=== PATIENT | female | born 1985 ===

== ENCOUNTER 2019-09-18 16:39 | Inpatient (IN) | payer OTHER ==
[2019-09-18] MEDS ORDERED: Tranexamic Acid 1,000 MG in Sodium Chloride 0.9% 100 ML IV PRN (17:21)
[2019-09-18] MEDS ORDERED: Methylergonovine 0.2 MG/1 ML Amp IM PRN (17:21)
[2019-09-18] MEDS ORDERED: Terbutaline 1 MG/ML SDV SUBCUT PRN (17:21)
[2019-09-18] MEDS ORDERED: Butorphanol 1 MG/ML SDV IVPUSH PRN (17:21)
[2019-09-18] MEDS ORDERED: Sodium Chloride 0.9% 2.5 ML Syringe FLUSH PRN (17:21)
[2019-09-18] MEDS ORDERED: Carboprost Tromethamine 250 MCG/1 ML Amp IM PRN (17:21)
[2019-09-18] MEDS ORDERED: Ondansetron 4 MG/2 ML SDV IVPUSH PRN (17:21)
[2019-09-18] MEDS ORDERED: Sodium Chloride 0.9% 10 ML SDV IV PRN (17:21)
[2019-09-18] MEDS ORDERED: Water For Irrigation,Sterile 1,000 ML Container IRR PRN (17:21)
[2019-09-18] MEDS ORDERED: Misoprostol 200 MCG Tab PO PRN (17:21)
[2019-09-18] MEDS ORDERED: Sodium Chloride 0.9% 10 ML Syringe FLUSH PRN (17:21)
[2019-09-18] MEDS ORDERED: Lidocaine 1% 50 ML MDV INJECT PRN (17:21)
[2019-09-18] MEDS ORDERED: Lactated Ringers 1,000 ML IV SCH (17:30)
[2019-09-18] MEDS ORDERED: Oxytocin/0.9 % Sodium Chloride 30 UNIT/500 ML BAG IV SCH ×2 (17:30)
[2019-09-18 17:56] LABS: BLOOD UREA NITROGEN,BUN 10 mg/dL (7.0-18.0); CARBON DIOXIDE,CO2 20.5 mmol/L (21.0-32.0); CHLORIDE,CL 101 mmol/L (98-107); GLUCOSE RANDOM 97 mg/dL (74-106); SODIUM,NA 137 mmol/L (136-145)
[2019-09-18] MEDS ORDERED: fentaNYL 100 MCG/2 ML SDV ONE (19:40)
[2019-09-18] MEDS ORDERED: Ropivacaine HCl/PF 100 ML ONE (19:40)
--- NOTE | 2019-09-18 19:58 | PCM.PREANE ---
Preanesthetic Assessment - Anesthesia/Transfusion/Family Hx Anesthesia History: Prior Anesthesia Without Reaction Family History of Anesthesia Reaction: No Transfusion History: No Prior Transfusion(s) - Physical Assessment NPO Status Date: 09/18/19 NPO Status Time: 15:00 Height: 1.68 m Weight: 99.79 kg ASA Class: 1 - Lab Values: Laboratory Last Values WBC 10.07 K/uL (4.0-11.0) 09/18/19 17:00 RBC 4.59 M/uL (4.30-5.90) 09/18/19 17:00 Hgb 14.2 g/dL (12.0-16.0) 09/18/19 17:00 Hct 41.4 % (36.0-46.0) 09/18/19 17:00 MCV 90.2 fL (80.0-98.0) 09/18/19 17:00 MCH 30.9 pg (27.0-32.0) 09/18/19 17:00 MCHC 34.3 g/dL (31.0-37.0) 09/18/19 17:00 RDW Std Deviation 42.8 fl (28.0-62.0) 09/18/19 17:00 RDW Coeff of Jl 13 % (11.0-15.0) 09/18/19 17:00 Plt Count 222 K/uL (150-400) 09/18/19 17:00 MPV 10.00 fL (7.40-12.00) 09/18/19 17:00 Nucleated RBC % 0.0 /100WBC 09/18/19 17:00 Nucleated RBCs # 0 K/uL 09/18/19 17:00 Sodium 137 mmol/L (136-145) 09/18/19 17:00 Potassium 4.0 mmol/L (3.5-5.1) 09/18/19 17:00 Chloride 101 mmol/L (98-107) 09/18/19 17:00 Carbon Dioxide 20.5 mmol/L (21.0-32.0) L 09/18/19 17:00 BUN 10 mg/dL (7.0-18.0) 09/18/19 17:00 Creatinine 0.6 mg/dL (0.6-1.0) 09/18/19 17:00 Est Cr Clr Drug Dosing 127.18 mL/min 09/18/19 17:00 Estimated GFR (MDRD) > 60.0 ml/min 09/18/19 17:00 Glucose 97 mg/dL (74-106) 09/18/19 17:00 Uric Acid 4.3 mg/dL (2.6-7.2) 09/18/19 17:00 Calcium 9.1 mg/dL (8.5-10.1) 09/18/19 17:00 Total Bilirubin 0.3 mg/dL (0.2-1.0) 09/18/19 17:00 AST 19 IU/L (15-37) 09/18/19 17:00 ALT 23 IU/L (14-63) 09/18/19 17:00 Alkaline Phosphatase 156 U/L (46-116) H 09/18/19 17:00 Total Protein 6.6 g/dL (6.4-8.2) 09/18/19 17:00 Albumin 2.9 g/dL (3.4-5.0) L 09/18/19 17:00 Globulin 3.7 g/dL (2.6-4.0) 09/18/19 17:00 Albumin/Globulin Ratio 0.8 (0.9-1.6) L 09/18/19 17:00 Ur Random Creatinine 143.5 mg/dL 09/18/19 17:50 U Random Total Protein 16.8 mg/dL (<11.9) H 09/18/19 17:50 Protein/Creatinin Ratio 0.1 09/18/19 17:50 COVID-19 (GIANCARLO) NEGATIVE (NEGATIVE) 09/18/19 17:05 Blood Type O NEGATIVE 09/18/19 17:00 Antibody Screen NEGATIVE 09/18/19 17:00 - Allergies Allergies/Adverse Reactions: Allergies Allergy/AdvReac Type Severity Reaction Status Date / Time Penicillins Allergy Rash Verified 02/01/14 17:49 - Acknowledgements Anesthesia Type Planned: Epidural Pt an Appropriate Candidate for the Planned Anesthesia: Yes Alternatives and Risks of Anesthesia Discussed w Pt/Guardian: Yes Pt/Guardian Understands and Agrees with Anesthesia Plan: Yes PreAnesthesia Questionnaire HEENT History: Reports: Impaired Vision, Other (See Below) Other HEENT History: contacts Cardiovascular History: Reports: Hypertension Other Cardiovascular History: gestational hypertension [employer]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: - Infectious Disease History Infectious Disease History: Reports: None - Past Surgical History GI Surgical History: Reports: Appendectomy - SUBSTANCE USE Smoking Status *Q: Never Smoker Second Hand Smoke Exposure: No Recreational Drug Use History: No - CURRENT (IN HOUSE) MEDS Current Meds: Current Medications Butorphanol Tartrate (Stadol) 1 mg IVPUSH Q1H PRN PRN Reason: Pain Carboprost Tromethamine (Hemabate Ds) 250 mcg IM ASDIRECTED PRN PRN Reason: Post Hemorrhage Lactated Ringer's (Ringers, Lactated) 1,000 mls @ 150 mls/hr IV ASDIRECTED SYL Oxytocin/Sodium Chloride (Oxytocin 30 Unit/500 Ml-Ns) 30 unit in 500 mls @ 999 mls/hr IV TITRATE SYL Tranexamic Acid 1,000 mg/ (Sodium Chloride) 110 mls @ 660 mls/hr IV ONETIME PRN PRN Reason: Bleeding Oxytocin/Sodium Chloride (Oxytocin 30 Unit/500 Ml-Ns) 30 unit in 500 mls @ 2 mls/hr IV TITRATE SYL; Protocol Lidocaine HCl (Xylocaine 1%) 50 ml INJECT ONETIME PRN PRN Reason: Laceration repair Methylergonovine Maleate (Methergine) 0.2 mg IM ASDIRECTED PRN PRN Reason: Post Hemorrhage Misoprostol (Cytotec) 200 mcg PO ONETIME PRN PRN Reason: Post Hemorrhage Ondansetron HCl (Zofran) 4 mg IVPUSH Q4H PRN PRN Reason: Nausea/Vomiting Sodium Chloride (Saline Flush) 10 ml FLUSH ASDIRECTED PRN PRN Reason: Keep Vein Open Sodium Chloride (Saline Flush) 2.5 ml FLUSH ASDIRECTED PRN PRN Reason: Keep Vein Open Sodium Chloride (Normal Saline) 10 ml IV ASDIRECTED PRN PRN Reason: IV Use Sterile Water (Sterile Water For Irrigation) 1,000 ml IRR ASDIRECTED PRN PRN Reason: delivery Terbutaline Sulfate (Brethine) 0.25 mg SUBCUT ASDIRECTED PRN PRN Reason: Tacysystole Discontinued Medications Fentanyl (Sublimaze) Confirm Administered Dose 100 mcg .ROUTE .STK-MED ONE Stop: 09/18/19 19:41 Ropivacaine (Naropin 0.2%) Confirm Administered Dose 100 mls @ as directed .ROUTE .STK-MED ONE Stop: 09/18/19 19:41
--- NOTE | 2019-09-18 20:02 | PCM.PRNOTE ---
- Free Text/Narrative Note: Anes Note Patietn requests epidural for L&D. Sitting position, level L3-L4 midline approach. Sterile technique. Chloraprep scrub to lumbar area. Sterile fenestrated drape applied. Epidural space easily achieved single attempt using FABY technique. FABY at 3 cm. Cath threaded 5 cm with ease. Cath secured at 9 cm at skin using sterile clear adhesive dressing. Test 1946 3 cc 1.5 lido with epi negative. 1950 Load 10 cc 0.2% ropivicaine with 1 mcg cc fentanyl in slow divided doses. 1956 Pumps started wit 90 cc same solution. Rate is 8 cc hr with 6 cc q 20 min prn bolus. Bryan well. Time with patient [id number] Apolinar Coates CRISIS MENTAL HEALTH THERAPIST
[2019-09-18] MEDS ORDERED: Ibuprofen 400 MG Tab PO PRN (22:45)
[2019-09-18] MEDS ORDERED: Bisacodyl 10 MG Supp RECTAL PRN (22:45)
[2019-09-18] MEDS ORDERED: Acetaminophen 500 MG Tab PO PRN ×2 (22:45)
[2019-09-18] MEDS ORDERED: oxyCODONE 5 MG Tab PO PRN (22:45)
[2019-09-18] MEDS ORDERED: Benzocaine/Menthol 20%-0.5% Spray 78 GM Cannister TOP PRN (22:45)
[2019-09-18] MEDS ORDERED: Ibuprofen 800 MG Tab PO PRN (22:45)
[2019-09-18] MEDS ORDERED: Witch Hazel Medicated Pads 40/Jar TOP PRN (22:45)
[2019-09-18] MEDS ORDERED: Docusate Sodium 100 MG Cap PO PRN (22:45)
[2019-09-18] MEDS ORDERED: Lanolin 100% Cream 7 GM Tube TOP PRN (22:45)
--- NOTE | 2019-09-18 22:51 | PCM.DEL ---
L & D Note - General Info Date of Service: 09/18/19 Mother's Due Date: 09/16/19 - Delivery Note Labor: Spontaneous Delivery Outcome: Livebirth Presentation: Right Occiput Anterior (JULIO) Nuchal Cord: None Anesthesia Type: Epidural Amniotic Fluid Description: Clear Episiotomy Type: None Laceration: None Estimated Blood Loss: 300 Resuscitation Needed: No Score 1 min: 8 Score 5 min: 9 Second Stage Interventions: Reports: Pushing Effectively Delivery Comments (Free Text/Narrative):: Live female delivered at 2158 , 8/9 , weight 3770g - General Info Date of Service: 09/18/19 - Patient Data Weight - Most Recent: 99.79 kg Lab Results Last 24 Hours: Laboratory Results - last 24 hr 09/18/19 09/18/19 09/18/19 Range/Units 17:00 17:00 17:00 WBC 10.07 (4.0-11.0) K/uL RBC 4.59 (4.30-5.90) M/uL Hgb 14.2 (12.0-16.0) g/dL Hct 41.4 (36.0-46.0) % MCV 90.2 (80.0-98.0) fL MCH 30.9 (27.0-32.0) pg MCHC 34.3 (31.0-37.0) g/dL RDW Std Deviation 42.8 (28.0-62.0) fl RDW Coeff of Jl 13 (11.0-15.0) % Plt Count 222 (150-400) K/uL MPV 10.00 (7.40-12.00) fL Nucleated RBC % 0.0 /100WBC Nucleated RBCs # 0 K/uL Sodium 137 (136-145) mmol/L Potassium 4.0 (3.5-5.1) mmol/L Chloride 101 (98-107) mmol/L Carbon Dioxide 20.5 L (21.0-32.0) mmol/L BUN 10 (7.0-18.0) mg/dL Creatinine 0.6 (0.6-1.0) mg/dL Est Cr Clr Drug Dosing 127.18 mL/min Estimated GFR (MDRD) > 60.0 ml/min Glucose 97 (74-106) mg/dL Uric Acid (2.6-7.2) mg/dL Calcium 9.1 (8.5-10.1) mg/dL Total Bilirubin 0.3 (0.2-1.0) mg/dL AST 19 (15-37) IU/L ALT 23 (14-63) IU/L Alkaline Phosphatase 156 H (46-116) U/L Total Protein 6.6 (6.4-8.2) g/dL Albumin 2.9 L (3.4-5.0) g/dL Globulin 3.7 (2.6-4.0) g/dL Albumin/Globulin Ratio 0.8 L (0.9-1.6) Ur Random Creatinine mg/dL U Random Total Protein (<11.9) mg/dL Protein/Creatinin Ratio COVID-19 (GIANCARLO) (NEGATIVE) Blood Type O NEGATIVE Antibody Screen NEGATIVE 09/18/19 09/18/19 09/18/19 Range/Units 17:00 17:05 17:50 WBC (4.0-11.0) K/uL RBC (4.30-5.90) M/uL Hgb (12.0-16.0) g/dL Hct (36.0-46.0) % MCV (80.0-98.0) fL MCH (27.0-32.0) pg MCHC (31.0-37.0) g/dL RDW Std Deviation (28.0-62.0) fl RDW Coeff of Jl (11.0-15.0) % Plt Count (150-400) K/uL MPV (7.40-12.00) fL Nucleated RBC % /100WBC Nucleated RBCs # K/uL Sodium (136-145) mmol/L Potassium (3.5-5.1) mmol/L Chloride (98-107) mmol/L Carbon Dioxide (21.0-32.0) mmol/L BUN (7.0-18.0) mg/dL Creatinine (0.6-1.0) mg/dL Est Cr Clr Drug Dosing mL/min Estimated GFR (MDRD) ml/min Glucose (74-106) mg/dL Uric Acid 4.3 (2.6-7.2) mg/dL Calcium (8.5-10.1) mg/dL Total Bilirubin (0.2-1.0) mg/dL AST (15-37) IU/L ALT (14-63) IU/L Alkaline Phosphatase (46-116) U/L Total Protein (6.4-8.2) g/dL Albumin (3.4-5.0) g/dL Globulin (2.6-4.0) g/dL Albumin/Globulin Ratio (0.9-1.6) Ur Random Creatinine 143.5 mg/dL U Random Total Protein 16.8 H (<11.9) mg/dL Protein/Creatinin Ratio 0.1 COVID-19 (GIANCARLO) NEGATIVE (NEGATIVE) Blood Type Antibody Screen Med Orders - Current: Current Medications Acetaminophen (Tylenol Extra Strength) 500 mg PO Q4H PRN PRN Reason: Pain Acetaminophen (Tylenol Extra Strength) 1,000 mg PO Q4H PRN PRN Reason: Pain Benzocaine/Menthol (Dermoplast Pain Relief 20%-0.5% [place]) 78 gm TOP ASDIRECTED PRN PRN Reason: Perineal Comfort Measure Bisacodyl (Dulcolax) 10 mg RECTAL ONETIME PRN PRN Reason: Constipation Carboprost Tromethamine (Hemabate Ds) 250 mcg IM ASDIRECTED PRN PRN Reason: Post Hemorrhage Docusate Sodium (Colace) 100 mg PO BID PRN PRN Reason: Constipation Emollient Ointment (Lansinoh Hpa) 0 gm TOP ASDIRECTED PRN PRN Reason: Sore Nipples Lactated Ringer's (Ringers, Lactated) 1,000 mls @ 150 mls/hr IV ASDIRECTED [facility] Oxytocin/Sodium Chloride (Oxytocin 30 Unit/500 Ml-Ns) 30 unit in 500 mls @ 999 mls/hr IV TITRATE [facility] Last Admin: 09/18/19 21:59 Dose: 999 mls/hr Documented by: Tranexamic Acid 1,000 mg/ (Sodium Chloride) 110 mls @ 660 mls/hr IV ONETIME PRN PRN Reason: Bleeding Oxytocin/Sodium Chloride (Oxytocin 30 Unit/500 Ml-Ns) 30 unit in 500 mls @ 2 mls/hr IV TITRATE [facility]; Protocol Ibuprofen (Motrin) 400 mg PO Q4H PRN PRN Reason: Pain Ibuprofen (Motrin) 800 mg PO Q6H PRN PRN Reason: Pain Lidocaine HCl (Xylocaine 1%) 50 ml INJECT ONETIME PRN PRN Reason: Laceration repair Methylergonovine Maleate (Methergine) 0.2 mg IM ASDIRECTED PRN PRN Reason: Post Hemorrhage Misoprostol (Cytotec) 200 mcg PO ONETIME PRN PRN Reason: Post Hemorrhage Ondansetron HCl (Zofran) 4 mg IVPUSH Q4H PRN PRN Reason: Nausea/Vomiting Oxycodone HCl (Oxycodone) 5 mg PO Q2H PRN PRN Reason: Pain Sodium Chloride (Saline Flush) 10 ml FLUSH ASDIRECTED PRN PRN Reason: Keep Vein Open Sodium Chloride (Saline Flush) 2.5 ml FLUSH ASDIRECTED PRN PRN Reason: Keep Vein Open Sodium Chloride (Normal Saline) 10 ml IV ASDIRECTED PRN PRN Reason: IV Use Sterile Water (Sterile Water For Irrigation) 1,000 ml IRR ASDIRECTED PRN PRN Reason: delivery Terbutaline Sulfate (Brethine) 0.25 mg SUBCUT ASDIRECTED PRN PRN Reason: Tacysystole Witch Gladys (Tucks) 1 pad TOP ASDIRECTED PRN PRN Reason: comfort care Discontinued Medications Butorphanol Tartrate (Stadol) 1 mg IVPUSH Q1H PRN PRN Reason: Pain Fentanyl (Sublimaze) Confirm Administered Dose 100 mcg .ROUTE .STK-MED ONE Stop: 09/18/19 19:41 Last Admin: 09/18/19 22:30 Dose: Not Given Documented by: Ropivacaine (Naropin 0.2%) Confirm Administered Dose 100 mls @ as directed .ROUTE .STK-MED ONE Stop: 09/18/19 19:41 Last Admin: 09/18/19 22:29 Dose: Not Given Documented by: - Problem List & Annotations (1) Vaginal delivery SNOMED Code(s): 032933610 Code(s): O80 - ENCOUNTER FOR FULL-TERM UNCOMPLICATED DELIVERY Status: Acute Current Visit: No - Problem List Review Problem List Initiated/Reviewed/Updated: Yes - My Orders Last 24 Hours: My Active Orders 09/18/19 22:45 Patient Status [ADT] Routine May Shower [RC] ASDIRECTED Up ad Munira [RC] ASDIRECTED Vital Signs [RC] PER UNIT ROUTINE Acetaminophen [Tylenol Extra Strength] 1,000 mg PO Q4H PRN Acetaminophen [Tylenol Extra Strength] 500 mg PO Q4H PRN Benzocaine/Menthol [Dermoplast Pain Relief 20%-0.5% [place]] 78 gm TOP ASDIRECTED PRN Docusate Sodium [Colace] 100 mg PO BID PRN Ibuprofen [Motrin] 400 mg PO Q4H PRN Ibuprofen [Motrin] 800 mg PO Q6H PRN Lanolin [Lansinoh HPA] See Dose Instructions TOP ASDIRECTED PRN bisacodyL [Dulcolax] 10 mg RECTAL ONETIME PRN oxyCODONE 5 mg PO Q2H PRN witch Gladys [Tucks] 1 pad TOP ASDIRECTED PRN Assess Lochia [WOMSER] Per Unit Routine Assess Uterine Involution [WOMSER] Per Unit Routine Peripheral IV Discontinue [OM.PC] Routine Resuscitation Status Routine 09/18/19 22:47 RHOGAM, [RHIG WORKUP, ] [BBK] Routine 09/19/19 05:11 HEMOGLOBIN/HEMATOCRIT,HH [HEME] Timed
--- NOTE | 2019-09-19 07:10 | PCM48HPAN ---
Post Anesthesia Note - EVALUATION WITHIN 48HRS OF ANESTHETIC Vital Signs in Normal Range: Yes Patient Participated in Evaluation: Yes Respiratory Function Stable: Yes Airway Patent: Yes Cardiovascular Function Stable: Yes Hydration Status Stable: Yes Pain Control Satisfactory: Yes Nausea and Vomiting Control Satisfactory: Yes Mental Status Recovered: Yes Vital Signs: Last Vital Signs Temp 98 F 09/19/19 06:10 Pulse 93 09/19/19 06:10 Resp 16 09/19/19 06:10 BP 119/73 09/19/19 06:10 Pulse Ox
--- NOTE | 2019-09-19 08:27 | PCM.PNPP ---
- General Info Date of Service: 09/19/19 Functional Status: Reports: Pain Controlled, Tolerating Diet, Ambulating, Urinating - Review of Systems General: Reports: No Symptoms HEENT: Reports: No Symptoms Pulmonary: Reports: No Symptoms Cardiovascular: Reports: No Symptoms Gastrointestinal: Reports: No Symptoms Genitourinary: Reports: No Symptoms Musculoskeletal: Reports: No Symptoms Skin: Reports: No Symptoms Neurological: Reports: No Symptoms Psychiatric: Reports: No Symptoms - General Info Date of Service: 09/19/19 - Patient Data Vital Signs - Most Recent: Last Vital Signs Temp 36.5 C 09/19/19 08:12 Pulse 83 09/19/19 08:12 Resp 18 09/19/19 08:12 BP 110/70 09/19/19 08:12 Pulse Ox 95 09/19/19 08:12 Weight - Most Recent: 99.79 kg I&O - Last 24 Hours: Intake & Output 09/18/19 09/19/19 09/19/19 22:59 06:59 14:59 Output Total 225 Balance -225 Lab Results - Last 24 Hours: Laboratory Results - last 24 hr 09/18/19 09/18/19 09/18/19 Range/Units 17:00 17:00 17:00 WBC 10.07 (4.0-11.0) K/uL RBC 4.59 (4.30-5.90) M/uL Hgb 14.2 (12.0-16.0) g/dL Hct 41.4 (36.0-46.0) % MCV 90.2 (80.0-98.0) fL MCH 30.9 (27.0-32.0) pg MCHC 34.3 (31.0-37.0) g/dL RDW Std Deviation 42.8 (28.0-62.0) fl RDW Coeff of Jl 13 (11.0-15.0) % Plt Count 222 (150-400) K/uL MPV 10.00 (7.40-12.00) fL Nucleated RBC % 0.0 /100WBC Nucleated RBCs # 0 K/uL Cord ABG pH (7.18-7.38) Cord ABG Base Excess (-10--2) Cord VBG pH (7.25-7.45) Cord VBG Base Excess (-10--2) Sodium 137 (136-145) mmol/L Potassium 4.0 (3.5-5.1) mmol/L Chloride 101 (98-107) mmol/L Carbon Dioxide 20.5 L (21.0-32.0) mmol/L BUN 10 (7.0-18.0) mg/dL Creatinine 0.6 (0.6-1.0) mg/dL Est Cr Clr Drug Dosing 127.18 mL/min Estimated GFR (MDRD) > 60.0 ml/min Glucose 97 (74-106) mg/dL Uric Acid (2.6-7.2) mg/dL Calcium 9.1 (8.5-10.1) mg/dL Total Bilirubin 0.3 (0.2-1.0) mg/dL AST 19 (15-37) IU/L ALT 23 (14-63) IU/L Alkaline Phosphatase 156 H (46-116) U/L Total Protein 6.6 (6.4-8.2) g/dL Albumin 2.9 L (3.4-5.0) g/dL Globulin 3.7 (2.6-4.0) g/dL Albumin/Globulin Ratio 0.8 L (0.9-1.6) Ur Random Creatinine mg/dL U Random Total Protein (<11.9) mg/dL Protein/Creatinin Ratio COVID-19 (GIANCARLO) (NEGATIVE) Blood Type O NEGATIVE Antibody Screen NEGATIVE Screen (NEGATIVE) RhIG Candidate? Rhogam Indicated 09/18/19 09/18/19 09/18/19 Range/Units 17:00 17:05 17:50 WBC (4.0-11.0) K/uL RBC (4.30-5.90) M/uL Hgb (12.0-16.0) g/dL Hct (36.0-46.0) % MCV (80.0-98.0) fL MCH (27.0-32.0) pg MCHC (31.0-37.0) g/dL RDW Std Deviation (28.0-62.0) fl RDW Coeff of Jl (11.0-15.0) % Plt Count (150-400) K/uL MPV (7.40-12.00) fL Nucleated RBC % /100WBC Nucleated RBCs # K/uL Cord ABG pH (7.18-7.38) Cord ABG Base Excess (-10--2) Cord VBG pH (7.25-7.45) Cord VBG Base Excess (-10--2) Sodium (136-145) mmol/L Potassium (3.5-5.1) mmol/L Chloride (98-107) mmol/L Carbon Dioxide (21.0-32.0) mmol/L BUN (7.0-18.0) mg/dL Creatinine (0.6-1.0) mg/dL Est Cr Clr Drug Dosing mL/min Estimated GFR (MDRD) ml/min Glucose (74-106) mg/dL Uric Acid 4.3 (2.6-7.2) mg/dL Calcium (8.5-10.1) mg/dL Total Bilirubin (0.2-1.0) mg/dL AST (15-37) IU/L ALT (14-63) IU/L Alkaline Phosphatase (46-116) U/L Total Protein (6.4-8.2) g/dL Albumin (3.4-5.0) g/dL Globulin (2.6-4.0) g/dL Albumin/Globulin Ratio (0.9-1.6) Ur Random Creatinine 143.5 mg/dL U Random Total Protein 16.8 H (<11.9) mg/dL Protein/Creatinin Ratio 0.1 COVID-19 (GIANCARLO) NEGATIVE (NEGATIVE) Blood Type Antibody Screen Screen (NEGATIVE) RhIG Candidate? Rhogam Indicated 09/18/19 09/18/19 09/19/19 Range/Units 21:58 23:00 06:25 WBC (4.0-11.0) K/uL RBC (4.30-5.90) M/uL Hgb 12.7 (12.0-16.0) g/dL Hct 39.2 (36.0-46.0) % MCV (80.0-98.0) fL MCH (27.0-32.0) pg MCHC (31.0-37.0) g/dL RDW Std Deviation (28.0-62.0) fl RDW Coeff of Jl (11.0-15.0) % Plt Count (150-400) K/uL MPV (7.40-12.00) fL Nucleated RBC % /100WBC Nucleated RBCs # K/uL Cord ABG pH 7.207 (7.18-7.38) Cord ABG Base Excess -6 (-10--2) Cord VBG pH 7.310 (7.25-7.45) Cord VBG Base Excess -4 (-10--2) Sodium (136-145) mmol/L Potassium (3.5-5.1) mmol/L Chloride (98-107) mmol/L Carbon Dioxide (21.0-32.0) mmol/L BUN (7.0-18.0) mg/dL Creatinine (0.6-1.0) mg/dL Est Cr Clr Drug Dosing mL/min Estimated GFR (MDRD) ml/min Glucose (74-106) mg/dL Uric Acid (2.6-7.2) mg/dL Calcium (8.5-10.1) mg/dL Total Bilirubin (0.2-1.0) mg/dL AST (15-37) IU/L ALT (14-63) IU/L Alkaline Phosphatase (46-116) U/L Total Protein (6.4-8.2) g/dL Albumin (3.4-5.0) g/dL Globulin (2.6-4.0) g/dL Albumin/Globulin Ratio (0.9-1.6) Ur Random Creatinine mg/dL U Random Total Protein (<11.9) mg/dL Protein/Creatinin Ratio COVID-19 (GIANCARLO) (NEGATIVE) Blood Type Antibody Screen Screen NEGATIVE (NEGATIVE) RhIG Candidate? YES Rhogam Indicated YES, BABY RH POS H Med Orders - Current: Current Medications Acetaminophen (Tylenol Extra Strength) 500 mg PO Q4H PRN PRN Reason: Pain Acetaminophen (Tylenol Extra Strength) 1,000 mg PO Q4H PRN PRN Reason: Pain Benzocaine/Menthol (Dermoplast Pain Relief 20%-0.5% [place]) 78 gm TOP ASDIRECTED PRN PRN Reason: Perineal Comfort Measure Last Admin: 09/18/19 23:54 Dose: 1 can Documented by: Bisacodyl (Dulcolax) 10 mg RECTAL ONETIME PRN PRN Reason: Constipation Carboprost Tromethamine (Hemabate Ds) 250 mcg IM ASDIRECTED PRN PRN Reason: Post Hemorrhage Docusate Sodium (Colace) 100 mg PO BID PRN PRN Reason: Constipation Emollient Ointment (Lansinoh Hpa) 0 gm TOP ASDIRECTED PRN PRN Reason: Sore Nipples Lactated Ringer's (Ringers, Lactated) 1,000 mls @ 150 mls/hr IV ASDIRECTED SYL Oxytocin/Sodium Chloride (Oxytocin 30 Unit/500 Ml-Ns) 30 unit in 500 mls @ 999 mls/hr IV TITRATE [facility] Last Admin: 09/18/19 21:59 Dose: 999 mls/hr Documented by: Tranexamic Acid 1,000 mg/ (Sodium Chloride) 110 mls @ 660 mls/hr IV ONETIME PRN PRN Reason: Bleeding Oxytocin/Sodium Chloride (Oxytocin 30 Unit/500 Ml-Ns) 30 unit in 500 mls @ 2 mls/hr IV TITRATE [facility]; Protocol Ibuprofen (Motrin) 400 mg PO Q4H PRN PRN Reason: Pain Ibuprofen (Motrin) 800 mg PO Q6H PRN PRN Reason: Pain Lidocaine HCl (Xylocaine 1%) 50 ml INJECT ONETIME PRN PRN Reason: Laceration repair Methylergonovine Maleate (Methergine) 0.2 mg IM ASDIRECTED PRN PRN Reason: Post Hemorrhage Misoprostol (Cytotec) 200 mcg PO ONETIME PRN PRN Reason: Post Hemorrhage Ondansetron HCl (Zofran) 4 mg IVPUSH Q4H PRN PRN Reason: Nausea/Vomiting Oxycodone HCl (Oxycodone) 5 mg PO Q2H PRN PRN Reason: Pain Sodium Chloride (Saline Flush) 10 ml FLUSH ASDIRECTED PRN PRN Reason: Keep Vein Open Sodium Chloride (Saline Flush) 2.5 ml FLUSH ASDIRECTED PRN PRN Reason: Keep Vein Open Sodium Chloride (Normal Saline) 10 ml IV ASDIRECTED PRN PRN Reason: IV Use Sterile Water (Sterile Water For Irrigation) 1,000 ml IRR ASDIRECTED PRN PRN Reason: delivery Terbutaline Sulfate (Brethine) 0.25 mg SUBCUT ASDIRECTED PRN PRN Reason: Tacysystole Witch Gladys (Tucks) 1 pad TOP ASDIRECTED PRN PRN Reason: comfort care Last Admin: 09/18/19 23:54 Dose: 1 tub Documented by: Discontinued Medications Butorphanol Tartrate (Stadol) 1 mg IVPUSH Q1H PRN PRN Reason: Pain Fentanyl (Sublimaze) Confirm Administered Dose 100 mcg .ROUTE .STK-MED ONE Stop: 09/18/19 19:41 Last Admin: 09/18/19 22:30 Dose: Not Given Documented by: Ropivacaine (Naropin 0.2%) Confirm Administered Dose 100 mls @ as directed .ROUTE .STK-MED ONE Stop: 09/18/19 19:41 Last Admin: 09/18/19 22:29 Dose: Not Given Documented by: - Interaction Support Person: - Recovery Exam Fundal Tone: Firm Fundal Level: At Umbilicus Fundal Placement: Midline Lochia Amount: Small Lochia Color: Alba/White Perineum Description: Intact, Minimal Bruising/Swelling Episiotomy/Laceration: None Bladder Status: Voiding - Exam General: Alert HEENT: Pupils Equal Neck: Supple Lungs: Clear to Auscultation, Normal Respiratory Effort Cardiovascular: Regular Rate, Regular Rhythm GI/Abdominal Exam: Normal Bowel Sounds Extremities: Normal Inspection Neurological: No New Focal Deficit Psy/Mental Status: Alert - Problem List & Annotations (1) Vaginal delivery SNOMED Code(s): 115868475 Code(s): O80 - ENCOUNTER FOR FULL-TERM UNCOMPLICATED DELIVERY Status: Acute Current Visit: No - Problem List Review Problem List Initiated/Reviewed/Updated: No - My Orders Last 24 Hours: My Active Orders 09/18/19 22:45 Patient Status [ADT] Routine May Shower [RC] ASDIRECTED Up ad Munira [RC] ASDIRECTED Vital Signs [RC] PER UNIT ROUTINE Acetaminophen [Tylenol Extra Strength] 1,000 mg PO Q4H PRN Acetaminophen [Tylenol Extra Strength] 500 mg PO Q4H PRN Benzocaine/Menthol [Dermoplast Pain Relief 20%-0.5% [place]] 78 gm TOP ASDIRECTED PRN Docusate Sodium [Colace] 100 mg PO BID PRN Ibuprofen [Motrin] 400 mg PO Q4H PRN Ibuprofen [Motrin] 800 mg PO Q6H PRN Lanolin [Lansinoh HPA] See Dose Instructions TOP ASDIRECTED PRN bisacodyL [Dulcolax] 10 mg RECTAL ONETIME PRN oxyCODONE 5 mg PO Q2H PRN witch Gladys [Tucks] 1 pad TOP ASDIRECTED PRN Assess Lochia [WOMSER] Per Unit Routine Assess Uterine Involution [WOMSER] Per Unit Routine Peripheral IV Discontinue [OM.PC] Routine Resuscitation Status Routine 09/18/19 23:00 SCREEN [BBK] Routine RH IMMUNE GLOBULIN [BBK] Routine RHOGAM, [RHIG WORKUP, ] [BBK] Routine - Assessment Assessment:: 33 yo s/p PPD 1 , , normal lochia - Plan Plan:: Discharge home
[2019-09-19 20:04] VITALS: BP 139/74; PULSE 94
--- NOTE | 2019-09-20 10:55 | OR ---
SURGEON: NETTE LOCKWOOD DATE OF PROCEDURE: 09/18/2019 PREOPERATIVE DIAGNOSES: A 33-year-old, G4, P 2-0-1-2, at 40 weeks, admitted for induction of labor secondary to postdates. Elevated blood pressure. She is also group B Streptococcus negative, Rh negative. POSTOPERATIVE DIAGNOSES: A 33-year-old, G4, P 2-0-1-2, at 40 weeks, admitted for induction of labor secondary to postdates. Elevated blood pressure. She is also group B Streptococcus negative, Rh negative. PROCEDURE: Normal spontaneous vaginal delivery. ANESTHESIA: Epidural. ESTIMATED BLOOD LOSS: 300. IV FLUIDS: Pitocin running. NOTES AND FINDINGS: A live female delivered at 2158. score is 8 and 9. Weight is 3770 g. BRIEF HISTORY ABOUT THE PATIENT: She is a 33-year-old, G4, P 2-0-1-2, who came in for routine care. She is postdates and was noted to have elevated blood pressure, 140s to 150s over 90s. She had a PIH lab done, which was negative. The patient was admitted for induction of labor as a result of the elevated blood pressures. She was about 4 cm dilated, AROM was done. The patient was complaining of pain, so she requested epidural, which she got. She made rapid progress, and she became fully dilated. DESCRIPTION OF PROCEDURE: With the patient being fully dilated, she was encouraged to push. She pushed, delivered the head, followed by the anterior and posterior shoulder. The body of the infant was delivered. She was placed on maternal abdomen. Delayed cord clamping was observed. Cord blood gases were obtained. Placenta was delivered via controlled cord traction. Perineum was inspected, was noted to be intact. Bimanual massage was done and uterus was noted to be firm. Vaginal bleeding was very minimal. The patient tolerated the procedure well. All instrument and pad counts were correct x2. The patient was left in Labor and Delivery room in stable condition. SOFIA HARTMAN /[id number] MTDD
== END 2019-09-19 23:35 | disposition home or self-care (01) | DRG 807 ==
LOC: MW.OB 16:39 → MW.OBCHECK 16:39 → MW.OB 17:22 → OBSVTOIN 22:45 → MW.OB 09-19 00:43
PROVIDERS: ADMIT Obstetrics & Gynecology; ATTEND Obstetrics & Gynecology
PROC: 10E0XZZ Delivery of Products of Conception, External Approach (ICD-10-PCS; principal; 2019-09-18)
PROC: 10907ZC Drainage of Amniotic Fluid, Therapeutic from Products of Conception, Via Natural or Artificial Opening (ICD-10-PCS; 2019-09-18)
PROC: 3E033VJ Introduction of Other Hormone into Peripheral Vein, Percutaneous Approach (ICD-10-PCS; 2019-09-18)
PROC: 3E0R3BZ Introduction of Anesthetic Agent into Spinal Canal, Percutaneous Approach (ICD-10-PCS; 2019-09-18)
PROC: 00HU33Z Insertion of Infusion Device into Spinal Canal, Percutaneous Approach (ICD-10-PCS; 2019-09-18)
DX: O48.0 Post-term pregnancy (principal); Z37.0 Single live birth; O16.4 Unspecified maternal hypertension, complicating childbirth; Z11.59 Encounter for screening for other viral diseases; Z3A.40 40 weeks gestation of pregnancy
CPT/HCPCS: 01967; 36415; 51702; 59025; 59409; 80053; 82570; 82803; 84156; 84550; 85014; 85018; 85027; 85460; 86592; 86850; 86900; 86901; A9270-GY; J2590; J2792; J2795; J3010; U0002